=== PATIENT | male | born 1990 | race African-American/Black ===

== ENCOUNTER 2018-03-24 06:20 | Day surgery (SDC) | payer OTHER ==
[2018-03-18 12:26] VITALS: BMI 21.2
[2018-03-24] MEDS ORDERED: SUCCINYLCHOLINE CHLORIDE 200 MG/10 ML VIAL ONE (07:35)
[2018-03-24] MEDS ORDERED: PROPOFOL 20 ML ONE ×2 (07:35)
[2018-03-24] MEDS ORDERED: MIDAZOLAM HCL 2 MG/2 ML SINGLE DOSE VIAL ONE ×2 (07:35→08:16)
[2018-03-24] MEDS ORDERED: BUPIVACAINE HCL/EPINEPHRINE/PF 30 ML VIAL IJ ONE (07:56)
[2018-03-24] MEDS ORDERED: ONDANSETRON 4 MG/2 ML VIAL ONE (08:08)
[2018-03-24] MEDS ORDERED: KETOROLAC TROMETHAMINE 30 MG/1 ML VIAL ONE (08:08)
[2018-03-24] MEDS ORDERED: ceFAZolin SODIUM 1 GM VIAL ONE (08:08)
[2018-03-24] MEDS ORDERED: DEXAMETHASONE SOD PHOSPHATE 4 MG/1 ML VIAL ONE (08:08)
--- NOTE | 2018-03-24 08:09 | HP ---
[facility] - Chief Complaint Chief Complaint: Right upper extremity masses x 3 History Source: Patient Limitations to Obtaining History: No Limitations - Past Medical History Allergies/Adverse Reactions: Allergies Allergy/AdvReac Type Severity Reaction Status Date / Time No Known Allergies Allergy Verified 03/18/18 12:30 - Current Medications Current Medications: Home Medications Medication Instructions Recorded NK [No Known Home Medication] 03/18/18 [facility] Physical Exam - Physical Examination Vital Signs: Vital Signs Period Temp Pulse Resp BP Sys/[place] Pulse Ox Last 24 Hr 98.1 F 56 18 111/70 100 General Appearance: Well Nourished Lung: Clear to auscultation Heart: Regular rate & rhythm Abdomen: Soft Extremities: Other (Right upper extremity masses x 3 Medial aspect of biceps Each 1-2cm in size in diameter, minimal tenserness, no erythema, no discharge) Neurological: Alert, Oriented Satellite Impression/Plan - Impression/Plan Impression: Right upper extremity masses x 3 Operative Procedure: Excision of right upper extremity masses x 3 Date to be Performed: 03/24/18
[2018-03-24] MEDS ORDERED: BUPIVACAINE 0.25% /EPI 1:200,000 10 ML VIAL INF ONE (08:22)
--- NOTE | 2018-03-24 08:48 | OP ---
Operative Note - Note: Operative Date: 03/24/18 Pre-Operative Diagnosis: Right upper extremity mass x 3 Operation: Excision of right upper extremity mass x 3. Approximately 1.5-2cm in diameter each Post-Operative Diagnosis: Same as Pre-op Surgeon: Niko Lewis Anesthesia: Local, MAC Specimens Removed: Right upper extremity mass x 3 Estimated Blood Loss (mls): 0 Operative Report Dictated: Yes
[2018-03-24 09:04] VITALS: TEMP 97.7
[2018-03-24 09:23] VITALS: BP 110/60; PULSE 59
[2018-03-24] MEDS ORDERED: oxyCODONE HCL 5 MG TABLET PO PRN ×2 (09:41)
[2018-03-24] MEDS ORDERED: ONDANSETRON 4 MG/2 ML VIAL IVPUSH PRN (09:41)
[2018-03-24] MEDS ORDERED: PROMETHAZINE HCL 25 MG/1 ML VIAL IVPB PRN (09:41)
--- NOTE | 2018-03-24 20:59 | OP ---
DATE OF OPERATION: 03/24/2018 SURGEON: Yessenia Lewis MD PREOPERATIVE DIAGNOSIS: Right upper extremity mass x3. POSTOPERATIVE DIAGNOSIS: Right upper extremity mass x3. PROCEDURE: Open excisional biopsy of right upper extremity mass x3, approximately 1.5 cm to 2 cm in diameter each. SPECIMEN: Right upper extremity mass x3. ANESTHESIA: MAC/local. ESTIMATED BLOOD LOSS: 0 mL REASON FOR PROCEDURE: This is a 27-year-old gentleman who presented for multiple masses these were each minimally tender without erythema or discharge. Because of the concern of the etiology of the mass, he desired excision of 3 right upper extremity masses for diagnostic purposes. These were located in the right upper extremity at the medial aspect of the bicep. The risks and benefits of the procedure were explained. These included bleeding; infection; recurrence of the mass; injury to surrounding structures including muscle injury, vessel injury, nerve injury; CT, DVT, PE, as some of the complications. He understood and signed informed consent. DESCRIPTION OF PROCEDURE: Patient was placed supine on the operating room table. He underwent MAC by Anesthesia. Timeout was performed. Marcaine with epinephrine was injected at all 3 previously marked sites. A 15-blade scalpel was used to open each area transversely. Using sharp scissor, each mass was circumferentially dissected, transected, and removed off the field as specimen. 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 Hemostasis was obtained using electrocautery. All 3 incision sites were closed using 4-0 Biosyn. Sterile dressing was applied. The patient tolerated the procedure well, transferred to recovery room in stable condition. YESSENIA LEWIS M.D. DEVAN/[id number]
--- NOTE | 2018-03-26 16:01 | PATH ---
Surgical Pathology Report Patient Name: BURTON [facility]. Rec. #: [id number] /Age/Gender: 1990 (Age: 27) / M Account: [id number] Location: [facility] Taken: 03/24/2018 Received: 03/24/2018 Reported: 03/26/2018 Physicians: Niko Lewis M.D. Specimen(s) Received RIGHT UPPER EXTREMITY MASSES Clinical History Right upper extremity masses Final Diagnosis RIGHT UPPER EXTREMITY, MASSES, EXCISION: ANGIOLIPOMA(S). Electronically Signed Kiera Kasper M.D. Gross Description Received in formalin labeled "right upper extremity masses," are 3 portions of yellow, lobulated adipose tissue ranging from 1.0 x 1.0 x 0.5 cm to 1.9 x 1.3 x 0.6 cm. Etcher [employer] sections are submitted in 2 cassettes. /03/25/2018 saudi03/25/2018
== END 2018-03-24 09:30 | disposition home or self-care (01) ==
LOC: FASU 06:20
PROVIDERS: ATTEND Surgery
PROC: 0JBD0ZX Excision of Right Upper Arm Subcutaneous Tissue and Fascia, Open Approach, Diagnostic (ICD-10-PCS; principal; 2018-03-24 08:22)
DX: D17.21 Benign lipomatous neoplasm of skin and subcutaneous tissue of right arm (principal)
CPT/HCPCS: 88305-TC